=== PATIENT | female | born 1990 | race Caucasian/White ===

== ENCOUNTER 2017-08-29 21:45 | Emergency (ER) | payer OTHER ==
[~2017-08-29] VITALS: Ht 157.5 cm; Wt 72.0 kg
[~2017-08-29 21:45] MED LIST: HYDROCODON-ACE1 EAC7 PO; NAPROXEN500 MG PO; PREDNISONE20 MG PO
[2017-08-29] MEDS ORDERED: MEDROL DOSEPAK4 MG PO (22:21)
[2017-08-29] MEDS ORDERED: PEN-VEE K,VEET500 MG PO (22:21)
[2017-08-29] MEDS ORDERED: NORCO 5/3251 TABLET PO (22:21)
[2017-08-29 22:38] VITALS: BP 158/70
== END 2017-08-29 22:59 | disposition home or self-care (01) ==
LOC: EME 21:45 → EXP 21:45
DX: K04.7 Periapical abscess without sinus (principal); G56.03 Carpal tunnel syndrome, bilateral upper limbs; F17.200 Nicotine dependence, unspecified, uncomplicated
CPT/HCPCS: 99281; 99284; J7512

== ENCOUNTER 2017-10-13 09:50 | Emergency (ER) | payer OTHER ==
[~2017-10-13] VITALS: Ht 157.5 cm; Wt 73.1 kg
[~2017-10-13 09:50] MED LIST changes: +MEDROL DOSEPAK4 MG PO; +NORCO 5/3251 TABLET PO; +PEN-VEE K,VEET500 MG PO
[2017-10-13] MEDS ORDERED: PEN-VEE K,VEET500 MG PO (10:32)
[2017-10-13] MEDS ORDERED: NORCO 5/3251 TABLET PO (10:32)
[2017-10-13 11:04] VITALS: BP 156/88
== END 2017-10-13 11:04 | disposition home or self-care (01) ==
LOC: EME 09:50
DX: K08.89 Other specified disorders of teeth and supporting structures (principal); K01.1 Impacted teeth; F17.200 Nicotine dependence, unspecified, uncomplicated
CPT/HCPCS: 99281; 99284